=== PATIENT | female | born 1975 | race Hispanic/Latino ===

== ENCOUNTER 2016-11-17 05:57 | Day surgery (SDC) | payer BC ==
[~2016-11-17] VITALS: Ht 152.4 cm; Wt 79.5 kg
[2016-11-17] VITALS (8 sets, daily range): BP systolic 111–142; BP diastolic 69–88
[~2016-11-17 05:57] MED LIST: FERROUS SULF325 M2 PO; GABAPENTIN300 M2 PO; NORVASC5 M1 PO
[2016-11-17 16:20] LABS: HEMATOCRIT 34.1 % (37.0-47.0); HEMOGLOBIN 11.3 g/dl (12.0-16.0)
[2016-11-18 04:51] VITALS: BP 109/69
[2016-11-18] MEDS ORDERED: LORTAB 7.5-3251 TAB PO (07:25)
[2016-11-18 08:08] VITALS: BP 140/72
== END 2016-11-18 10:34 | disposition home or self-care (01) | DRG 743 ==
LOC: ORM 05:57 → MS2 05:57 → ORM 07:30 → MS2 10:35 → ORM 11-18 10:34
PROVIDERS: ATTEND Obstetrics & Gynecology
PROC: 0UT97ZZ Resection of Uterus, Via Natural or Artificial Opening (ICD-10-PCS; principal; 2016-11-17)
PROC: 0UTC7ZZ Resection of Cervix, Via Natural or Artificial Opening (ICD-10-PCS; 2016-11-17)
PROC: 0UQF7ZZ Repair Cul-de-sac, Via Natural or Artificial Opening (ICD-10-PCS; 2016-11-17)
PROC: 0JQC0ZZ Repair Pelvic Region Subcutaneous Tissue and Fascia, Open Approach (ICD-10-PCS; 2016-11-17)
DX: N92.1 Excessive and frequent menstruation with irregular cycle (principal); E66.9 Obesity, unspecified; N94.6 Dysmenorrhea, unspecified; N39.3 Stress incontinence (female) (male); D50.9 Iron deficiency anemia, unspecified; N81.10 Cystocele, unspecified; N81.6 Rectocele; Z68.35 Body mass index [BMI] 35.0-35.9, adult
CPT/HCPCS: J1100; J2710; Q9967